=== PATIENT | male | born 1995 | race Caucasian/White ===

== ENCOUNTER 2024-12-30 21:19 | Emergency (ER) | payer MEDICAID ==
[~2024-12-30] VITALS: Ht 170.2 cm; Wt 91.0 kg
[2024-12-30 21:43] VITALS: TEMP 36.7; O2SAT 100
[2024-12-30] MEDS: ACETAMINOPHEN 325MG TABLET PO ONE (22:51)
[2024-12-30] MEDS: IBUPROFEN 400MG TABLET PO ONE (22:51)
[2024-12-31] MEDS: KETOROLAC 30MG/ML VIAL IM ONE (00:17)
[2024-12-31] MEDS ORDERED: TOPUD MT (01:38)
[2024-12-31] MEDS ORDERED: IBUP-2028 MT (01:38)
[2024-12-31 01:56] VITALS: BP 145/76; PULSE 96; RESP 16; O2SAT 97
== END 2024-12-31 01:57 | disposition home or self-care (01) ==
LOC: ER 21:19
DX: M79.671 Pain in right foot (principal)
CPT/HCPCS: 99283; 29515; 73630; 96372; J1885